=== PATIENT | female | born 1935 | race Caucasian/White ===

== ENCOUNTER 2016-08-13 19:56 | Emergency (ER) | payer MEDICARE ==
[2016-08-13 20:39] LABS: Bilirubin Small (Negative); Blood, Urine Large (Negative); Glucose, Urine (Dipstick) 100 mg/dL (Negative); Leukocyte Negative (Negative); Nitrite Negative (Negative); Protein, Urine (Dipstick) 30 mg/dL (Neg-Trace); Specific Gravity, Urine 1.025 (1.005-1.030)
[2016-08-13 20:40] LABS: Clarity Hazy (Clear)
[2016-08-13 20:42] LABS: RBC/HPF GREATER THAN 50-TNTC HPF (0-3)
[2016-08-13 20:43] LABS: Bacteria/HPF Rare-Few HPF (None Seen); Squamous Epithelial 0-3 HPF (0-3); WBC/HPF 0-3 HPF (0-3)
--- NOTE | 2016-08-13 21:01 | RAD ---
AP VIEW OF THE CHEST 08/13/16 INDICATION: Weakness. COMPARISON: None. FINDINGS/IMPRESSION: There is mild cardiomegaly. Pulmonary vasculature is within normal limits. No confluent air space op acity or pleural effusion is noted. The bones are mildly hyperinflated. There is healed deformity in volving the left mid shaft clavicle. No acute osseous abnormality is evident. POS: [facility]
[2016-08-13 21:15] LABS: #Basophils 0.1 thou/uL (0.0-0.2); #Eosinphils 0.1 thou/uL (0.0-0.7); #Lymphocytes 1.9 thou/uL (1.20-3.40); #Monocytes 1.1 thou/uL (0.11-0.59); #Neutrophils 4.3 thou/uL (1.40-6.50); %Basophils 1.1 % (0.0-1.0); %Lymphocytes 25.1 % (21.0-51.0); %Monocytes 14.3 % (0.0-10.0); %Neutrophils 57.5 % (42.0-75.0); Hemoglobin 11.9 g/dL (12.0-16.0); Mean Corpuscular HGB CONC 32.7 g/dL (32.0-36.0); Mean Corpuscular Hemoglobin 26.8 pg (27.0-31.0); Mean Corpuscular Volume 81.9 fl (81.0-99.0); Mean Platelet Volume 11.4 fL (7.4-10.4); Platelet Count 167 thou/uL (130-400); RBC Distribution Width 12.2 % (11.5-14.5); Red Blood Cell (RBC) Count 4.44 mill/uL (4.20-5.40); White Blood Cell (WBC) Count 7.4 thou/uL (4.8-10.8)
[2016-08-13 21:31] LABS: ALT (SGPT) 7 U/L (0-55); AST (SGOT) 13 U/L (5-34); Albumin 4.3 g/dL (3.4-4.8); Alkaline Phosphatase 118 U/L (40-150); Amylase 100 U/L (20-160); Anion Gap 16 mmol/L (10-20); BUN (Urea Nitrogen) 18 mg/dL (9.8-20.1); Bilirubin, Total 0.4 mg/dL (0.2-1.2); CK (CPK) 24 U/L (29-168); CKMB 0.6 ng/mL (0-6.6); Calc. Creatinine Clearance 0 mL/min (70-130); Calcium 9.2 mg/dL (7.8-10.44); Carbon Dioxide 21 mmol/L (23-31); Chloride 102 mmol/L (98-107); Estimated GFR-MDRD 64; Globulin 2.1 g/dL (2.4-3.5); Glucose 101 mg/dL (83-110); Lipase 50 U/L (8-78); Potassium 4.7 mmol/L (3.5-5.1); Protein, Total 6.4 g/dL (5.8-8.1); Sodium 134 mmol/L (136-145); Troponin I 0.012 ng/mL (< 0.028)
== END 2016-08-13 22:34 | disposition home or self-care (01) ==
LOC: MADERS 19:56
DX: F43.0 Acute stress reaction (principal); R31.9 Hematuria, unspecified; M62.81 Muscle weakness (generalized); I10 Essential (primary) hypertension; Z79.899 Other long term (current) drug therapy
CPT/HCPCS: 71010; 80053; 81001; 82150; 82550; 82553; 83690; 84484; 85025; 87086; 93005

== ENCOUNTER 2016-09-03 19:33 | Emergency (ER) | payer MEDICARE ==
[2016-09-03] MEDS ORDERED: Furosemide 20 MG/2 ML VIAL ONE (20:00)
[2016-09-03 20:10] LABS: ALT (SGPT) 13 U/L (8-55); AST (SGOT) 20 U/L (5-34); Alkaline Phosphatase 109 U/L (40-150); Anion Gap 17 mmol/L (10-20); BUN (Urea Nitrogen) 17 mg/dL (9.8-20.1); Bilirubin, Total 0.4 mg/dL (0.2-1.2); Calc. Creatinine Clearance 0 mL/min (70-130); Calcium 8.8 mg/dL (7.8-10.44); Carbon Dioxide 19 mmol/L (23-31); Chloride 102 mmol/L (98-107); Eosinophils 3 % (0-10); Estimated GFR-MDRD 70; Globulin 2.6 g/dL (2.4-3.5); Glucose 104 mg/dL (83-110); Hemoglobin 11.6 g/dL (12.0-16.0); Large Platelets SLIGHT; Lymphocytes 10 % (21-51); MDiff Complete? YES; Mean Corpuscular HGB CONC 33.5 g/dL (32.0-36.0); Mean Corpuscular Hemoglobin 27.1 pg (27.0-31.0); Mean Corpuscular Volume 80.8 fl (81.0-99.0); Mean Platelet Volume 10.6 fL (7.4-10.4); Monocytes 2 % (0-10); Neutrophil 69 % (42-75); PLT Morphology Comment Appears Adequate; Platelet Count 188 thou/uL (130-400); Potassium 3.9 mmol/L (3.5-5.1); Protein, Total 6.6 g/dL (5.8-8.1); RBC Distribution Width 13.3 % (11.5-14.5); Reactive Lymphocytes 16 % (0-10); Red Blood Cell (RBC) Count 4.28 mill/uL (4.20-5.40); Sodium 134 mmol/L (136-145); White Blood Cell (WBC) Count 8.6 thou/uL (4.8-10.8)
[2016-09-03 20:11] LABS: CKMB 0.7 ng/mL (0-6.6); Troponin I 0.028 ng/mL (< 0.028)
--- NOTE | 2016-09-03 20:30 | RAD ---
UPRIGHT PORTABLE CHEST ONE VIEW: 09/03/16 HISTORY: 80-year-old female with dyspnea. COMPARISON: 08/13/16. There is cardiomegaly with developing bilateral vascular congestion and interstitial edema and pleur al effusions, evidence for developing congestive heart failure and pulmonary edema. Stable biapical pleural thickening. IMPRESSION: Developing interstitial pulmonary edema with congestive heart failure since prior study. POS: [facility]
== END 2016-09-03 21:46 | disposition short-term general hospital (02) ==
LOC: MADERS 19:33
DX: I11.0 Hypertensive heart disease with heart failure (principal); I50.23 Acute on chronic systolic (congestive) heart failure; Z79.899 Other long term (current) drug therapy; Z79.2 Long term (current) use of antibiotics
CPT/HCPCS: 71010; 80053; 82553; 83880; 84484; 85025; 87040; 93005; 96374; J1940

== ENCOUNTER 2016-11-12 10:39 | Outpatient (CLI) | payer MEDICARE ==
[2016-11-12 11:22] LABS: ALT (SGPT) 8 U/L (8-55); AST (SGOT) 13 U/L (5-34); Albumin 3.6 g/dL (3.4-4.8); Alkaline Phosphatase 59 U/L (40-150); Anion Gap 12 mmol/L (10-20); BUN (Urea Nitrogen) 18 mg/dL (9.8-20.1); Bilirubin, Total 0.5 mg/dL (0.2-1.2); Calc. Creatinine Clearance 0 mL/min (70-130); Calcium 8.7 mg/dL (7.8-10.44); Carbon Dioxide 24 mmol/L (23-31); Chloride 106 mmol/L (98-107); Cholesterol 164 mg/dl (< 200 Desired); Estimated GFR-MDRD 66; Globulin 2.6 g/dL (2.4-3.5); Glucose 91 mg/dL (83-110); HDL Cholesterol 41 mg/dL (>60 Neg Risk); LDL Cholesterol, Calculated 107 mg/dL; Protein, Total 6.2 g/dL (6.0-8.3); Sodium 137 mmol/L (136-145); Triglycerides 80 mg/dL (Less than 150)
[2016-11-12 11:29] LABS: Band 1 % (5-11); Eosinophils 2 % (0-10); Hemoglobin 10.8 g/dL (12.0-16.0); Large Platelets SLIGHT; Lymphocytes 30 % (21-51); MDiff Complete? YES; Mean Corpuscular HGB CONC 32.3 g/dL (32.0-36.0); Mean Corpuscular Hemoglobin 27.1 pg (27.0-31.0); Monocytes 10 % (0-10); Neutrophil 57 % (42-75); PLT Morphology Comment Appears Adequate; Platelet Count 149 thou/uL (130-400); RBC Distribution Width 13.4 % (11.5-14.5); Red Blood Cell (RBC) Count 3.97 mill/uL (4.20-5.40); White Blood Cell (WBC) Count 3.9 thou/uL (4.8-10.8)
== END 2016-11-12 10:40 | disposition home or self-care (01) ==
LOC: MADLABBHPM 10:39
PROVIDERS: ATTEND Family Medicine
DX: I10 Essential (primary) hypertension (principal)
CPT/HCPCS: 36415; 80053; 80061; 85025

== ENCOUNTER 2016-12-23 11:13 | Outpatient (CLI) | payer MEDICARE ==
[2016-12-23 12:08] LABS: Anion Gap 13 mmol/L (10-20); BUN (Urea Nitrogen) 22 mg/dL (9.8-20.1); Calc. Creatinine Clearance 0 mL/min (70-130); Calcium 8.5 mg/dL (7.8-10.44); Carbon Dioxide 26 mmol/L (23-31); Chloride 100 mmol/L (98-107); Estimated GFR-MDRD 43; Glucose 166 mg/dL (83-110); Potassium 3.7 mmol/L (3.5-5.1); Sodium 135 mmol/L (136-145)
== END 2016-12-23 11:14 | disposition home or self-care (01) ==
LOC: MADLAB 11:13
PROVIDERS: ATTEND Internal Medicine Cardiovascular Disease
DX: I42.0 Dilated cardiomyopathy (principal)
CPT/HCPCS: 36415; 80048; 83880